=== PATIENT | female | born 1995 | race Caucasian/White ===

== ENCOUNTER 2020-07-04 12:55 | Emergency (ER) | payer MEDICAID, SELFPAY ==
[2020-07-04 12:56] VITALS: BP 128/72; PULSE 87; RESP 18; TEMP 36.7; O2SAT 98; BMI 22.6
--- NOTE | 2020-07-04 13:34 | CT_ITS ---
PROCEDURE: CT ABDOMEN PELVIS WO CON CLINICAL INDICATION: R sided abd pain and R flank pain Right-sided abdominal pain and right flank pain COMPARISON: US US GALLBLADDER from 07/04/2020 TECHNIQUE: Axial images obtained with sagittal and coronal reformats. All CT scans at the facility use one or more dose reduction, viz: automated exposure control, ma/kV adjustment per patient size (including targeted exams where dose is matched to indication, i.e. head), or iterative reconstruction technique. FINDINGS: LOWER THORAX: No acute finding ABDOMEN & PELVIS: The liver, gallbladder, spleen, right adrenal gland, and pancreas has an unremarkable appearance. No renal or ureteral calculi. There is a cystic posterior to the fundus of the stomach possibly due to a diverticulum of the stomach measuring 2 cm in with. This is contiguous with the posterior aspect of stomach. This is also contiguous with the lateral limb of the left adrenal gland. And adrenal lesion would be included in the differential diagnosis. The appendix is not clearly delineated. There are no findings concerning for appendicitis. There are few small nodes in the right lower quadrant. No abnormal fluid collections or focal inflammatory change evident. There is a mild amount of retained colonic feces. No acute bony findings. IMPRESSION: 1. Possible gastric diverticulum versus left adrenal nodule. Nonemergent follow-up with IV and oral contrast may provide further evaluation. 2. The appendix is not clearly delineated however, no convincing signs of appendicitis. Dictated by: Reynold Tomlinson MD 07/04/2020 16:44 Reynold Tomlinson MD in [facility] 07/04/2020 16:44
[2020-07-04 13:42] LABS: Appearance,Urine CLEAR (Clear); Bilirubin,Urine Negative (Negative); Blood, Urine Negative (Negative); Color,Urine YELLOW (Yellow); Glucose,Urine (UA) Negative (Negative); Ketones,Urine 2+ (Negative); Leukocyte Esterase,Urine Negative (Negative); Microscopic, Urine URINE MICROSCOPIC (MICROSCOPIC); Nitrate,Urine Negative (Negative); Protein,Urine Negative (Negative); Specific Gravity, Urine >= 1.030 (1.005-1.030); Urobilinogen,Urine 0.2 EU/dl (0.2)
[2020-07-04 13:46] LABS: Basophils % 0.6 % (0.1-2.0); Chloride 107 mmol/L (98-107); Eosinophils # 0.1 K/mm3 (0.0-0.4); Eosinophils % 0.6 % (0.1-12.0); Hemoglobin 14.4 g/dL (12.2-16.2); Lymphocytes # 2.9 K/mm3 (0.7-4.5); Lymphocytes % 37.7 % (10-50); Mean Corpuscular HGB Conc 33.6 g/dL (31.8-35.4); Mean Corpuscular Hemoglobin 28.6 pg (27.0-31.2); Mean Platelet Volume 8.2 fl (7.4-10.4); Monocytes # 0.4 K/mm3 (0.1-1.0); Monocytes % 4.8 % (1.7-9.3); Neutrophils # 4.4 K/mm3 (1.8-7.8); Neutrophils % 56.3 % (37.0-80.0); Platelet Count 273 K/mm3 (142-424); Red Blood Count 5.05 M/mm3 (4.20-5.40); Red Cell Distribution Width 12.2 % (11.5-17.5); Sodium 140 mmol/L (136-145); White Blood Count 7.7 K/mm3 (4.8-10.8)
[2020-07-04 13:47] LABS: Urine Pregnancy, HCG Qual. Negative (Negative)
[2020-07-04 13:48] LABS: Amylase 71 U/L (30-110); Blood Urea Nitrogen 11 mg/dl (7-17); Creatinine Clearance Estimated 121 mL/min (50-200); Estimated Glomerular Filt Rate 100 ml/min (>60); GFR (African American) 121 ML/MIN (>60); Lipase 94 U/L (23-300)
[2020-07-04 13:49] LABS: Alanine Aminotransferase 19 U/L (12-78); Albumin Level 4.7 g/dl (3.5-5.0); Albumin/Globulin Ratio 1.4 (1.1-1.8); Alkaline Phosphatase 68 U/L (38-126); Aspartate Amino Transferase 29 U/L (14-36); Bilirubin,Total 0.4 mg/dl (0.2-1.3); Calcium 9.6 mg/dl (8.4-10.2); Carbon Dioxide 24 mmol/L (22.0-30.0); Globulin 3.3 g/dL (1.3-3.2); Glucose 100 mg/dl (74-100)
--- NOTE | 2020-07-04 14:08 | [facility].EDGENADL ---
ED Disposition Clinical Impression: Right flank pain, Right upper quadrant pain Disposition: Home, Self-Care Condition on Discharge: Good Instructions: DI for Acute Abdominal Pain, DI for Flank Pain Additional Instructions: Follow-up with your primary care provider for further evaluation of possible diverticulum of the stomach. Return to the emergency department if worsening flank or abdominal pain, fever, vomiting. Observe rash at home. If blisters develop, follow-up with your primary care provider for treatment. Referrals: Marlen Lomeli [Primary Care Provider] - - Critical Care Critical Care Time: No Attestation: On 07/04/20, the high probability of a clinically significant, sudden or life threatening deterioration of the following system(s) required my full and direct attention, intervention and personal management. The time I documented below is in addition to time spent performing reported procedures but includes the following listed in this critical care notation. Medical Decision Making - Lefty Inquiry Pt receiving controlled substance: No Vital Signs: 07/04/20 12:56 Temperature 98.0 F Temperature Source Oral Pulse Rate [Right Radial] 87 Respiratory Rate 18 Blood Pressure [Right Arm] 128/72 Blood Pressure Mean [Right Arm] 90 Blood Pressure Source [Right Arm] Automatic Cuff Blood Pressure Position [Right Arm] Sitting 02 Sat by Pulse Oximetry 98 Oxygen Delivery Method Room Air - Lab Data Lab Results 07/04/20 13:20: Urine Color Yellow, Urine Appearance Clear, Urine pH 6.0, Ur Specific [place] >= 1.030, Urine Protein Negative, Urine Glucose (UA) Negative, Urine Ketones 2+, Urine Blood Negative, Urine Nitrate Negative, Urine Bilirubin Negative, Urine Urobilinogen 0.2, Ur Leukocyte Esterase Negative, Urine RBC None, Urine WBC 3-5, Ur Squamous Epith Cells 3-5, Urine Bacteria None 07/04/20 13:20: WBC 7.7, RBC 5.05, Hgb 14.4, Hct 43.0, MCV 85.0, MCH 28.6, MCHC 33.6, RDW 12.2, Plt Count 273, MPV 8.2, Neut % (Auto) 56.3, Lymph % (Auto) 37.7, Lee % (Auto) 4.8, Eos % (Auto) 0.6, Baso % (Auto) 0.6, Neut # (Auto) 4.4, Lymph # (Auto) 2.9, Lee # (Auto) 0.4, Eos # (Auto) 0.1, Baso # (Auto) 0.0 07/04/20 13:20: Urine HCG, Qual Negative 07/04/20 13:20: Sodium 140, Potassium 4.0, Chloride 107, Carbon Dioxide 24, Anion Gap 13.0, BUN 11, Creatinine 0.70, Estimated Creat Clear 121, Estimated GFR 100, Est GFR ( Amer) 121, Glucose 100, Calcium 9.6, Total Bilirubin 0.4, AST 29, ALT 19, Alkaline Phosphatase 68, Total Protein 8.0, Albumin 4.7, Globulin 3.3 H, Albumin/Globulin Ratio 1.4, Amylase 71 07/04/20 13:20: Lipase 94 Result diagrams: 07/04/20 13:20 07/04/20 13:20 Orders (Tests/Meds): ED MEDICATIONS Discontinued Medications Generic Name Dose Route Start Last Admin Trade Name Freq PRN Reason Stop Dose Admin Sodium Chloride 1,000 ml 07/04/20 14:08 07/04/20 15:19 Sodium Chloride 0.9% 1000ml Bag IV 07/04/20 14:09 1,000 ml BOLUS ONE Administration ORDERS Category Date Time Status US gallbladder Stat Exams 07/04/20 14:16 Taken - CT Data CT Scan: Abdomen, Pelvis Time Received: 17:[address] Reviewed: Yes: I have viewed the radiologist's interpretation Findings Narrative: PROCEDURE: CT ABDOMEN PELVIS WO CON CLINICAL INDICATION: R sided abd pain and R flank pain Right-sided abdominal pain and right flank pain COMPARISON: US US GALLBLADDER from 07/04/2020 TECHNIQUE: Axial images obtained with sagittal and coronal reformats. All CT scans at the facility use one or more dose reduction, viz: automated exposure control, ma/kV adjustment per patient size (including targeted exams where dose is matched to indication, i.e. head), or iterative reconstruction technique. FINDINGS: LOWER THORAX: No acute finding ABDOMEN & PELVIS: The liver, gallbladder, spleen, right adrenal gland, and pancreas has an unremarkable appearance. No renal or ureteral calculi. There
--- NOTE | 2020-07-04 14:16 | US_ITS ---
PROCEDURE: US GALLBLADDER CLINICAL INDICATION: RUQ pain COMPARISON: No exams were available for comparison FINDINGS: Pancreas: Unremarkable/Not well seen Liver: Unremarkable. There is appropriate direction of blood flow within a non dilated portal vein. Right kidney: Unremarkable appearing. No hydronephrosis. Gallbladder: No stones are evident. There is no gallbladder wall thickening. Common duct is normal in diameter. There may be a minimal amount of gallbladder sludge of questionable clinical significance. IMPRESSION: Negative gallbladder ultrasound. No stones evident. Questionable minimal amount of gallbladder sludge Dictated by: Reynold Tomlinson MD 07/04/2020 18:02 Reynold Tomlinson MD in [facility] 07/04/2020 18:02
--- NOTE | 2020-07-04 14:25 | PC.NURSE ---
notified rad of u/s order
--- NOTE | 2020-07-04 14:27 | PC.NURSE ---
pt to radiology
[2020-07-04 15:22] VITALS: BP 139/86; PULSE 61; O2SAT 100
[2020-07-04 15:30] VITALS: BP 136/79; PULSE 64; O2SAT 100
[2020-07-04 16:00] VITALS: BP 133/80; PULSE 66; O2SAT 100
--- NOTE | 2020-07-04 16:21 | PC.NURSE ---
ER speaking radiologist r/t Ct that was previously read by jazmin, states he will view it and call back
[2020-07-04 17:48] VITALS: BP 151/73; PULSE 70; RESP 18; TEMP 36.7; O2SAT 100
== END 2020-07-04 17:48 | disposition home or self-care (01) ==
PROVIDERS: Emergency Provider Emergency Medicine; PCP Family Medicine
DX: R10.11 Right upper quadrant pain (principal); K62.5 Hemorrhage of anus and rectum
CPT/HCPCS: 74176; 76705; 80053; 81001; 81025; 82150; 83690; 85025; 96365; 99283